=== PATIENT | male | born 1955 | race Caucasian/White ===

== ENCOUNTER 2018-02-25 17:32 | Emergency (ER) | payer MEDICARE, OTHER ==
[~2018-02-25] VITALS: Ht 175.3 cm; Wt 79.5 kg
[2018-02-25] MEDS ORDERED: proparacaine 0.5% ophthalmic drops 15ml EACHEYE ONE (20:15)
[2018-02-25] MEDS ORDERED: erythromycin ophthalmic ointment 1gm tube LEFTEYE ONE (20:15)
[2018-02-25 21:07] VITALS: BP 171/83
== END 2018-02-25 21:08 | disposition home or self-care (01) ==
LOC: ER 17:32
DX: S05.02XA Injury of conjunctiva and corneal abrasion without foreign body, left eye, initial encounter (principal); F17.200 Nicotine dependence, unspecified, uncomplicated; W50.0XXA Accidental hit or strike by another person, initial encounter; Y93.89 Activity, other specified; Y92.89 Other specified places as the place of occurrence of the external cause; Y99.8 Other external cause status
CPT/HCPCS: 99283

== ENCOUNTER 2019-03-22 03:23 | Emergency (ER) | payer MEDICARE ==
[~2019-03-22] VITALS: Ht 175.3 cm; Wt 79.5 kg
[2019-03-22 03:25] VITALS: BP 130/79
[2019-03-22] MEDS ORDERED: ketorolac trometh. 30mg/ml inj. IM ONE (04:00)
== END 2019-03-22 04:18 | disposition home or self-care (01) ==
LOC: ER 03:24
DX: G89.29 Other chronic pain (principal); M54.41 Lumbago with sciatica, right side; Z98.890 Other specified postprocedural states
CPT/HCPCS: 96372; 99284; J1885